=== PATIENT | male | born 1960 | race Caucasian/White ===

== ENCOUNTER 2021-07-24 08:16 | Day surgery (SDC) | payer OTHER, SELFPAY ==
[~2021-07-24] VITALS: Ht 172.7 cm; Wt 79.4 kg
[2021-07-24] MEDS ORDERED: MEPERIDINE 100 MG INJ. 100 MG/ML VIAL ONE (10:41)
[2021-07-24] MEDS ORDERED: GLYCOPYRROLATE 0.2 MG/ML VIAL ONE (10:42)
[2021-07-24] MEDS ORDERED: MIDAZOLAM HCL 5 MG/5 ML VIAL ONE (10:42)
[2021-07-24 17:20] VITALS: BP_SYST 138
== END 2021-07-24 14:10 | disposition home or self-care (01) ==
LOC: SDS 08:16 → SMU 08:17 → EDBD 09:00 → SDS 14:10
PROVIDERS: ATTEND Colon & Rectal Surgery
DX: Z12.11 Encounter for screening for malignant neoplasm of colon (principal); K57.30 Diverticulosis of large intestine without perforation or abscess without bleeding; E78.00 Pure hypercholesterolemia, unspecified; Z20.822 Contact with and (suspected) exposure to COVID-19; Z79.899 Other long term (current) drug therapy
CPT/HCPCS: 36415; 45378; 87426; 99152; 99153; G0378; J2175; J2250; J3490; U0003